=== PATIENT | male | born 1945 | race African-American/Black ===

== ENCOUNTER 2017-01-18 22:52 | Emergency (ER) | payer OTHER ==
[2017-01-18 23:00] VITALS: BP 101/59
[2017-01-18 23:13] LABS: BASOPHILS % (AUTO) 0.4 % (0.2-1.0); EOSINOPHILS # (AUTO) 0.1 x10^3/uL (0.0-0.2); EOSINOPHILS % (AUTO) 1.4 % (0.9-2.9); HEMATOCRIT 37.3 % (42.0-54.0); HEMOGLOBIN 12.7 g/dL (13.5-18.0); LYMPHOCYTES # (AUTO) 2.3 X10^3/uL (1.3-2.9); LYMPHOCYTES % (AUTO) 41.2 % (21.0-51.0); MEAN CORPUSCULAR HEMOGLOBIN 31.1 pg (27.0-34.0); MEAN CORPUSCULAR HGB CONC 34.1 g/dL (33.0-35.0); MEAN PLATELET VOLUME 7.7 fL (7.4-11.0); MONOCYTES # (AUTO) 0.6 x10^3/uL (0.3-0.8); MONOCYTES % (AUTO) 11.7 % (0.0-13.0); NEUTROPHILS # (AUTO) 2.5 x10^3/uL (2.2-4.8); NEUTROPHILS % (AUTO) 45.3 % (42.0-75.0); PLATELET COUNT 172 X10^3/uL (150.0-450.0); RED BLOOD COUNT 4.09 X10^6/uL (4.7-6.0); RED CELL DISTRIBUTION WIDTH 13.6 % (11.6-16.5); WHITE BLOOD COUNT 5.6 X10^3/uL (3.6-10.0)
--- NOTE | 2017-01-18 23:29 | CT ---
EXAM: CT BRAIN WITHOUT CONTRAST INDICATION: Syncope COMPARISION: No Priors TECHNIQUE: Routine axial CT of the brain was performed without intravenous contrast. FINDINGS: There is moderate bilateral cortical atrophy. Multifocal areas of encephalomalacia are seen bilateral ly consistent with prior infarcts. Patchy areas of low-attenuation are identified in the periventricu lar white matter bilaterally. The ventricular system is not abnormally dilated. No intra or extra-axi al mass or hemorrhage. The cohn-white junction is preserved. There is no evidence of subacute ischemi c change. The basilar cisterns are clear. The skull is intact. The paranasal sinuses and mastoid air cells are clear. IMPRESSION: There is bilateral cortical atrophy. Periventricular and subcortical white matter changes are present bilaterally consistent with mild small vessel vasculopathy. Multifocal areas of encephalomalacia are present consistent with prior infarcts. Reported By:
--- NOTE | 2017-01-18 23:30 | RAD ---
EXAM: Chest X-ray INDICATION: Syncope COMPARISION: Prior exam from July 15, 2012 TECHNIQUE: AP, single view FINDINGS: The lungs are clear in the lung volumes are within normal limits. No pleural effusion or pneumothorax . The cardiac silhouette and mediastinum are normal. The regional skeleton is intact. There is a lef t-sided defibrillator. IMPRESSION: Normal Chest X-Ray Reported By:
--- NOTE | 2017-01-18 23:30 | DR.GENAD ---
HPI - PCP Primary Care Physician: Keven - Complaint/Symptoms Chief Complaint Doctors Comments: Patient states that he was in the shower and slipped. Ther was LOC but no injury. He has had 1-2 prior episoded of falling at home. He has a pacemaker. Denies fever, vomitying or diarrhea. He has had a CVA in the past and atleast two episodes of TIA. Patient is alert in no acute distress. - Nurses notes reviewed Nurses Notes Review: Yes - Source History Provided: Patient, EMS - Mode of Arrival Mode of Arrival: EMS - Duration Duration: Minutes PMH - PMH Past Medical History: CVA, Hypertension Past Surgical History: Yes Surgical History: No History - Family History Family Medical History: Hypertension - Social History Do you use any recreational Drugs:: No ROS - Review of Systems Eyes: No Symptoms Reported ENTM: No Symptoms Reported Respiratoy: No Symptoms Reported Cardiovascular: No Symptoms Reported Gastrointestinal/Abdominal: No Symptoms Reported Genitourinary: No Symptoms Reported Neurological: No Symptoms Reported, Headache Musculoskeletal: No Symptoms Reported Integumentary: No Symptoms Reported Hematologic/Lymphatic: No Symptoms Reported Endocrine: No Symptoms Reported Psychiatric: No Symptoms Reported All Other Systems: Reviewed and Negative PE - Vital Signs Vitals: Temperature 98.1 F Pulse Rate [Right Brachial] 59 Respiratory Rate 16 Blood Pressure [Left Arm] 120/77 Blood Pressure [Right Arm] 101/59 Blood Pressure 110/63 O2 Sat by Pulse Oximetry 100 - General Limitations: No Limitations General Appearance: Alert, In No Apparent Distress - Head Head Exam: Normal Inspection, Atraumatic - Eyes Eye exam: Normal Appearance, PERRL, EOMI - ENT ENT Exam: Normal Exam External Ear Exam: Normal External Inspection TM/Canal Exam: Bilateral Normal Nose Exam: Normal Nose Exam Mouth Exam: Normal Inspection Throat Exam: Normal Inspection - Neck Neck Exam: Normal Inspection, Full ROM - Chest Chest Inspection: Normal Inspection, Symmetric Chest Wall Rise - Respiratory Respiratory Exam: Normal Lung Sounds Bilat Respiratory Exam: Bilateral Clear to Auscultation - Cardiovascular Cardiovascular Exam: Regular Rate, Normal Rhythm - Abdominal Exam Abdominal Exam: Normal Inspection, Normal Bowel Sounds Abdominal Tenderness: negative: RUQ, RLQ, LUQ, LLQ, Epigastrium, Suprapubic, Diffuse, Mild, Moderate, Severe, Other - Extremities Extremities Exam: Normal Inspection, Full ROM - Back Back Exam: Normal Inspection - Neurologic Neurological Exam: Alert, Oriented X3, CN II-XII Intact - Psychiatric Psychiatric Exam: Normal Affect - Skin Skin Exam: Warm, Dry, Intact Course - Reevaluation 1st: Improved ROR - Labs Reviewed Result Diagrams: 01/18/17 23:00 01/18/17 23:00 Laboratory: WBC 5.6 X10^3/uL (3.6-10.0) 01/18/17 23:00 RBC 4.09 X10^6/uL (4.7-6.0) L 01/18/17 23:00 Hgb 12.7 g/dL (13.5-18.0) L 01/18/17 23:00 Hct 37.3 % (42.0-54.0) L 01/18/17 23:00 MCV 91.0 fL (80.0-100.0) 01/18/17 23:00 MCH 31.1 pg (27.0-34.0) 01/18/17 23:00 MCHC 34.1 g/dL (33.0-35.0) 01/18/17 23:00 RDW 13.6 % (11.6-16.5) 01/18/17 23:00 Plt Count 172 X10^3/uL (150.0-450.0) 01/18/17 23:00 MPV 7.7 fL (7.4-11.0) 01/18/17 23:00 Neut % 45.3 % (42.0-75.0) 01/18/17 23:00 Lymph % 41.2 % (21.0-51.0) 01/18/17 23:00 [place] % 11.7 % (0.0-13.0) 01/18/17 23:00 Eos % 1.4 % (0.9-2.9) 01/18/17 23:00 Baso % 0.4 % (0.2-1.0) 01/18/17 23:00 Neut # 2.5 x10^3/uL (2.2-4.8) 01/18/17 23:00 Lymph # 2.3 X10^3/uL (1.3-2.9) 01/18/17 23:00 [place] # 0.6 x10^3/uL (0.3-0.8) 01/18/17 23:00 Eos # 0.1 x10^3/uL (0.0-0.2) 01/18/17 23:00 Baso # 0.0 X10^3/uL (0.0-0.1) 01/18/17 23:00 Absolute Nucleated RBC 0.0 /100WBC 01/18/17 23:00 INR Target Range - 01/18/17 23:00 INR 1.60 (0.8-1.3) H 01/18/17 23:00 Sodium 137 mmol/L (136-145) 01/18/17 23:00 Corrected Sodium 137 mmol/L (136-145) 01/18/17 23:00 Potassium 3.7 mmol/L (3.5-5.1) 01/18/17 23:00 Chloride 97 mmol/L (98-107) L 01/18/17 23:00 Carbon Dioxide 20.4 mmol/L (21-32) L 01/18/17 23:00 BUN 37 mg/dL (7-18) H 01/18/17 23:00 Creatinine 2.22 mg/dL (0.70-1.30) H 01/18/17 23:00 Est GFR (MDRD) Af Amer 38 (>60) L 01/18/17 23:00 Est GFR (MDRD) Non-Af 31 (>60) L 01/18/17 23:00 Glucose 113 mg/dL (65-99) H 01/18/17 23:00 Calcium 9.5 mg/dL (8.5-10.1) 01/18/17 23:00 Corrected Calcium TNP 01/18/17 23:00 Magnesium 2.3 mg/dL (1.7-2.9) 01/18/17 23:00 Total Bilirubin 0.30 mg/dL (0.2-1.0) 01/18/17 23:00 AST 31 Units/L (15-37) 01/18/17 23:00 ALT 28 Units/L (12-78) 01/18/17 23:00 Alkaline Phosphatase 82 Units/L (46-116) 01/18/17 23:00 Creatine Kinase 371 Units/L (39-308) H 01/18/17 23:00 CK-MB (CK-2) 2.0 ng/mL (0-4.0) 01/18/17 23:00 CK/CKMB % Calc 0.5 % (<4) 01/18/17 23:00 Troponin I < 0.02 ng/mL (0-1.5) 01/18/17 23:00 Total Protein 8.0 g/dL (6.4-8.2) 01/18/17 23:00 Albumin 3.7 g/dL (3.4-5.0) 01/18/17 23:00 Globulin 4.3 g/dL (2.5-4.5) 01/18/17 23:00 Albumin/Globulin Ratio 0.9 Ratio (1.1-2.1) L 01/18/17 23:00 Specimen Type Clean catch urine 01/19/17 00:21 Urine Color Yellow (YELLOW) 01/19/17 00:21 Urine Appearance Clear (CLEAR) 01/19/17 00:21 Urine pH 6.0 (5.0 - 8.0) 01/19/17 00:21 Ur Specific [place] 1.015 (1.000-1.030) 01/19/17 00:21 Urine Protein 1+ (NEGATIVE) 01/19/17 00:21 Urine Glucose (UA) Negative (NEGATIVE) 01/19/17 00: Urine Ketones Negative (NEGATIVE) 01/19/17 00: Urine Occult Blood Negative (NEGATIVE) 01/19/17 00:21 Urine Nitrite Negative (NEGATIVE) 01/19/17 00:21 Urine Bilirubin Negative (NEGATIVE) 01/19/17 00:21 Urine Urobilinogen Normal (NORMAL) 01/19/17 00:21 Ur Leukocyte Esterase Negative (NEGATIVE) 01/19/17 00:21 Urine RBC 0-3 /HPF (NEGATIVE) 01/19/17 00:21 Urine WBC 0-3 /HPF (NEGATIVE) 01/19/17 00:21 Ur Squamous Epith Cells Rare /HPF (NEGATIVE) 01/19/17 00:21 Urine Bacteria Negative /HPF (NEGATIVE) 01/19/17 00:21 Ur Culture Indicated? No/not indicated 01/19/17 00:21 - XRAY XRAY Interpreted by: Radiologist (CT Brain: There is bilateral cortical atrophy. Periventricular and subcortical white matter changes are present bilaterall y consistent with mild small vessel vasculopathy. Multifocal areas of encephalomalacis are present consistent with prior infarcts. There is moderate bilateral cortical atrophy. Multifocal areas of encephalomalacia are seen bilaterally consistent with prior infarcts. Patchy areas of low attenuation are identified in the periventricular white matter bilaterally. The ventricular system is not abnormally dilated. No intra or extra axial mass or hemorrhage. The cohn white junctin is preserved. There is no evidence of subacute ischemic change. Chest: Normal chest x ray) - Diagnosis Discharge Problem: TIA (transient ischemic attack) Qualifiers: Transient cerebral ischemia type: unspecified Qualified Code(s): G45.9 - Transient cerebral ischemic attack, unspecified - Discharge Plan Condition: Stable - Follow ups/Referrals Follow ups/Referrals: NFD,None [Primary Care Provider] - 3 days - Instructions
[2017-01-18 23:36] LABS: ALANINE AMINOTRANSFERASE 28 Units/L (12-78); ALBUMIN 3.7 g/dL (3.4-5.0); ALKALINE PHOSPHATASE 82 Units/L (46-116); ASPARTATE AMINO TRANSFERASE 31 Units/L (15-37); BLOOD UREA NITROGEN 37 mg/dL (7-18); CHLORIDE 97 mmol/L (98-107); CKMB % 0.5 % (<4); CREATINE KINASE 371 Units/L (39-308); CREATININE 2.22 mg/dL (0.70-1.30); SODIUM 137 mmol/L (136-145); TROPONIN I < 0.02 ng/mL (0-1.5); eGFR BLACK RACES 38 (>60); eGFR NON BLACK RACES 31 (>60)
[2017-01-18 23:53] LABS: CALCIUM 9.5 mg/dL (8.5-10.1); CARBON DIOXIDE 20.4 mmol/L (21-32); COR NA(FOR HYPERGLY) 137 mmol/L (136-145)
[2017-01-19] MEDS ORDERED: NS 1000 ML 1,000 ML IV ONE (00:30)
[2017-01-19] MEDS ORDERED: NS 1000 ML 1,000 ML ONE (00:30)
[2017-01-19 00:39] LABS: BILIRUBIN,URINE NEGATIVE (NEGATIVE); BLOOD/HEMOGLOBIN,URINE NEGATIVE (NEGATIVE); GLUCOSE, URINE NEGATIVE (NEGATIVE); KETONES,URINE NEGATIVE (NEGATIVE); LEUKOCYTE ESTERASE ,URINE NEGATIVE (NEGATIVE); NITRITES,URINE NEGATIVE (NEGATIVE); PROTEIN,URINE 1+ (NEGATIVE); UROBILINOGEN,URINE NORMAL (NORMAL)
[2017-01-19 01:09] LABS: APPEARANCE,URINE CLEAR (CLEAR); BACTERIA,URINE NEGATIVE /HPF (NEGATIVE); COLOR,URINE YELLOW (YELLOW); RBC,URINE 0-3 /HPF (NEGATIVE); SQUAMOUS EPITHELIAL CELL,UR RARE /HPF (NEGATIVE)
== END 2017-01-19 01:40 | disposition home or self-care (01) ==
LOC: ER 22:55
DX: G45.9 Transient cerebral ischemic attack, unspecified (principal); G31.9 Degenerative disease of nervous system, unspecified; G93.89 Other specified disorders of brain; W18.49XA Other slipping, tripping and stumbling without falling, initial encounter; Y92.89 Other specified places as the place of occurrence of the external cause
CPT/HCPCS: 36415; 70450; 71010; 80053; 81001; 82550; 82553; 83735; 84484; 85025; 85610; 93005; 93010; 96365; 99283; A4222